=== PATIENT | female | born 1990 | race Caucasian/White ===

== ENCOUNTER 2017-10-18 01:08 | Emergency (ER) | payer OTHER ==
[2017-10-18 01:17] VITALS: BP 105/73; PULSE 79; TEMP 99; BMI 22.4
--- NOTE | 2017-10-18 01:29 | PDOC ---
History of Present Illness - General Chief Complaint: Pain Stated Complaint: ABD PAIN Time Seen by Provider: 10/18/17 01:10 - History of Present Illness Initial Comments: 10/18/17 01:43 Chief complaint: Pelvic pain and bleeding History of present illness: Patient states that she is 2 months and began to have bleeding approximately one week ago. She was checked at another hospital which she does not know the name and is unaware of the specific results of the tests that she had, although she states she had an ultrasound that showed a normal . The bleeding subsided earlier in the week, but she began to have light spotting again yesterday accompanied by suprapubic pain. The pain is not severe and she appears to be completely comfortable. Review of systems: LMP August 25. 3 para 2 with 2 live children ages 5 and 7. Her second was complicated by bleeding and resulted in a 29-week premature who reportedly is doing well. She has had no care and has no doctor or facility in mind. There is been no fever/chills, URI symptoms, sore throat, cough, chest pain, shortness of breath, nausea, vomiting, diarrhea , visual or focal neurologic symptoms, unsteadiness of gait. Past medical history: Prior pregnancies as noted above, otherwise negative. Specifically, no diabetes, heart disease, or other surgeries. Social history/family history reviewed and noncontributory Physical exam: Alert and oriented well-developed well-nourished no acute distress cheerful and cooperative Afebrile, vital signs normal HEENT clear Neck supple without bruit mass or nodes Lungs clear CV regular without murmur rub or gallop Abdomen nondistended. Bowel sounds normal. Soft without mass tenderness organomegaly. No definite heart tones were heard with Doppler. Pelvic exam: No heavy bleeding. Minimal spotting present. Tissue is protruding from the cervical os. No bimanual exam performed. Impression: 5-6 weeks by dates. Probable incomplete AB. No heavy bleeding or signs/symptoms of hypovolemia Plan: Labs and ultrasound. [facility] consultation. Past History - Past Medical History Allergies/Adverse Reactions: Allergies Allergy/AdvReac Type Severity Reaction Status Date / Time No Known Allergies Allergy Unverified 10/18/17 01:11 Home Medications: Ambulatory Orders NK [No Known Home Medication] 10/18/17 ED Treatment Course - LABORATORY CBC & Chemistry Diagram: 10/18/17 01:20 10/18/17 01:20 Medical Decision Making - Medical Decision Making 10/18/17 02:16 Phone consultation with [facility] continuous improvement specialist at [facility]&. Dr. Yanes. She recommends therapy with Cytotec, 200 mg stat, and 200 mg 3 times a day for 2 days. Motrin to control cramping. And follow-up at [facility]. Will consider when lab work and ultrasound are completed. 10/18/17 02:19 H/H 12.8/39.3. Urine qualitative hCG is positive. Quantitative pending. 10/18/17 05:48 Quantitative hCG greater than 99,000, consistent with 5-6 week gestation Ultrasound shows viable intrauterine with heart rate of 158. Approximately 5-6 weeks. Significance of the presumed tissue protruding from the os on examination is uncertain. Strongly recommended to patient that she see [facility] specialist within 2 days as directed for further examination, evaluation, and treatment. In the meantime, complete bedrest. *DC/Admit/Observation/Transfer Diagnosis at time of Disposition: Threatened - Discharge Dispostion Disposition: HOME Condition at time of disposition: Stable Decision to Admit order: No - Referrals Referrals: Gabriela Zuniga MD [Primary Care Provider] - 2 Days - Patient Instructions Printed Discharge Instructions: DI for Threatened Additional Instructions: Bed Rest See [facility] TECHNICIAN doctor as soon as possible. [facility] [phone] or [facility] Go to hospital if pain or bleeding worse. - Post Discharge Activity
[2017-10-18 02:08] LABS: BASO % 0.5 % (0-2.0); HEMATOCRIT 39.3 % (32.4-45.2); HEMOGLOBIN 12.8 GM/dL (10.7-15.3); LYMPH % 28.7 % (8-40); MCH 27.3 pg (25.7-33.7); MCHC 32.7 g/dl (32.0-36.0); MEAN CELL VOLUME 83.6 fl (80-96); MEAN PLT VOLUME 7.9 fl (7.5-11.1); NEUT % 60.8 % (42.8-82.8); PLATELET COUNT 276 K/MM3 (134-434); RDW 13.4 % (11.6-15.6); WHITE BLOOD COUNT 10.8 K/mm3 (4.0-10.0)
[2017-10-18 02:09] LABS: URINE APPEARANCE CLEAR; URINE BILIRUBIN NEGATIVE (<2.0 mg/dL); URINE COLOR LTYELLOW; URINE GLUCOSE (UA) NEGATIVE (NEGATIVE); URINE KETONE NEGATIVE (NEGATIVE); URINE NITRITE NEGATIVE (NEGATIVE); URINE PROTEIN NEGATIVE (NEGATIVE); URINE UROBILINOGEN NEGATIVE mg/dL (0.2-1.0)
[2017-10-18 02:12] LABS: URINE LEUK ESTERASE 2+ (NEGATIVE)
[2017-10-18 02:13] LABS: EPI CELLS RARE /HPF (FEW); HCG,QUALITATIVE URINE POSITIVE; URINE BACTERIA FEW /hpf (NONE SEEN)
[2017-10-18 02:33] LABS: ALBUMIN 3.4 g/dl (3.4-5.0); ALK PHOS 48 U/L (45-117); ANION GAP 6 (8-16); BLOOD UREA NITROGEN 13 mg/dL (7-18); CALCIUM 8.6 mg/dL (8.5-10.1); CHLORIDE 102 mmol/L (98-107); CO2 28 mmol/L (21-32); CREATININE 0.6 mg/dL (0.55-1.02); GLUCOSE,RANDOM 96 mg/dL (74-106); POTASSIUM 3.7 mmol/L (3.5-5.1); SGOT/AST 19 U/L (15-37); SGPT/ALT 22 U/L (12-78); SODIUM 136 mmol/L (136-145); TOT PROT 6.8 g/dl (6.4-8.2)
[2017-10-18 02:38] LABS: BILIRUBIN,TOTAL 0.1 mg/dL (0.2-1.0)
== END 2017-10-18 05:50 | disposition home or self-care (01) ==
LOC: FER 01:08
DX: O20.0 Threatened abortion (principal); Z3A.01 Less than 8 weeks gestation of pregnancy
CPT/HCPCS: 36415; 76801-TC; 76817-TC; 80053; 81003; 81015; 84702; 84703; 85025; 87086; 99282-25

== ENCOUNTER 2020-11-25 16:27 | Emergency (ER) | payer OTHER ==
[2020-11-25 16:35] VITALS: BP 109/60; PULSE 87; TEMP 98.9; BMI 25.4
[2020-11-25 18:07] LABS: BASO % 1.3 % (0-2.0); EOS % 1.7 % (0-4.5); HEMATOCRIT 33.4 % (32.4-45.2); HEMOGLOBIN 10.8 GM/dL (10.7-15.3); LYMPH % 19.1 % (8-40); MCH 23.5 pg (25.7-33.7); MCHC 32.5 g/dl (32.0-36.0); MEAN CELL VOLUME 72.2 fl (80-96); MEAN PLT VOLUME 7.3 fl (7.5-11.1); MONO % 5.5 % (3.8-10.2); NEUT % 72.4 % (42.8-82.8); PLATELET COUNT 335 10^3/uL (134-434); RBC 4.62 M/mm3 (3.60-5.2); RDW 18.3 % (11.6-15.6); WHITE BLOOD COUNT 10.2 K/mm3 (4.0-10.0)
[2020-11-25 18:25] LABS: CHLORIDE 103 mmol/L (98-107); SODIUM 137 mmol/L (136-145)
[2020-11-25 18:27] LABS: ALBUMIN 3.7 g/dl (3.4-5.0); ANION GAP 8 MMOL/L (8-16); BLOOD UREA NITROGEN 13.4 mg/dL (7-18); CO2 27 mmol/L (21-32); GLUCOSE,RANDOM 128 mg/dL (74-106)
[2020-11-25 18:30] LABS: SGOT/AST 15 U/L (15-37); SGPT/ALT 16 U/L (13-61)
[2020-11-25 18:31] LABS: CREATININE 0.8 mg/dL (0.55-1.3)
[2020-11-25 18:32] LABS: BILIRUBIN,TOTAL 0.2 mg/dL (0.2-1); TOT PROT 7.2 g/dl (6.4-8.2)
[2020-11-25 18:33] LABS: ALK PHOS 65 U/L (45-117)
[2020-11-25] MEDS ORDERED: DEXAMETHASONE LIQUID 0.5 MG/5 ML PO ONE (20:50)
[2020-11-25] MEDS ORDERED: DEXAMETHASONE 4 MG TABLET (FP) PO ONE (20:50)
[2020-11-25] MEDS ORDERED: DEXAMETHASONE 4 MG TABLET (FP) ONE (20:50)
== END 2020-11-25 20:59 | disposition home or self-care (01) ==
LOC: JER 16:27
DX: L02.211 Cutaneous abscess of abdominal wall (principal); G89.18 Other acute postprocedural pain
CPT/HCPCS: 36415; 76705-TC; 80053; 84702; 85025; 99284-25

== ENCOUNTER 2020-11-27 18:50 | Emergency (ER) | payer OTHER ==
[2020-11-27 18:56] VITALS: BP 102/68; PULSE 81; TEMP 97.5; BMI 25.4
[2020-11-27 22:50] LABS: BASO % 0.6 % (0-2.0); EOS % 1.2 % (0-4.5); HEMATOCRIT 31.8 % (32.4-45.2); HEMOGLOBIN 10.3 GM/dL (10.7-15.3); LYMPH % 22.3 % (8-40); MCH 23.5 pg (25.7-33.7); MCHC 32.4 g/dl (32.0-36.0); MEAN CELL VOLUME 72.5 fl (80-96); MEAN PLT VOLUME 7.5 fl (7.5-11.1); MONO % 9.3 % (3.8-10.2); NEUT % 66.6 % (42.8-82.8); PLATELET COUNT 376 10^3/uL (134-434); RBC 4.39 M/mm3 (3.60-5.2); RDW 18.1 % (11.6-15.6); WHITE BLOOD COUNT 9.3 K/mm3 (4.0-10.0)
[2020-11-27 22:57] LABS: CALCIUM 8.4 mg/dL (8.5-10.1)
[2020-11-27 22:58] LABS: ALBUMIN 3.3 g/dl (3.4-5.0); BLOOD UREA NITROGEN 13.6 mg/dL (7-18)
[2020-11-27 23:01] LABS: CREATININE 0.8 mg/dL (0.55-1.3)
[2020-11-27 23:02] LABS: BILIRUBIN,TOTAL 0.2 mg/dL (0.2-1); TOT PROT 6.6 g/dl (6.4-8.2)
[2020-11-28 01:46] LABS: URINE COLOR YELLOW
[2020-11-28 01:47] LABS: PH,URINE 7.5 (5.0-8.0); URINE APPEARANCE CLEAR; URINE BILIRUBIN NEGATIVE (NEGATIVE); URINE GLUCOSE (UA) NEGATIVE (NEGATIVE); URINE KETONE NEGATIVE (NEGATIVE); URINE NITRITE NEGATIVE (NEGATIVE); URINE PROTEIN NEGATIVE (NEGATIVE); URINE UROBILINOGEN 0.2 mg/dL (0.2-1.0)
[2020-11-28 01:48] LABS: EPI CELLS 15 /uL (0-25.1); HYALINE CASTS 1 /uL (0-3.1); URINE BACTERIA 168 /uL (0-1359); URINE LEUK ESTERASE NEGATIVE (NEGATIVE); URINE RBC 4 /uL (0-23.9); URINE WBC 38 /uL (0-25.8)
== END 2020-11-28 03:39 | disposition home or self-care (01) ==
LOC: JER 18:50
DX: T81.43XA Infection following a procedure, organ and space surgical site, initial encounter (principal)
CPT/HCPCS: 36415; 74177-TC; 80053; 81003; 85025; 99285-25

== ENCOUNTER 2023-08-10 12:17 | Emergency (ER) | payer OTHER ==
[2023-08-10 12:23] VITALS: BP 105/70; PULSE 79; RESP 18; TEMP 97.6; BMI 25.7
[2023-08-10 13:04] LABS: EOS % 4.6 % (0-4.5); HEMATOCRIT 39.7 % (32.4-45.2); HEMOGLOBIN 13.2 GM/dL (10.7-15.3); MCH 27.8 pg (25.7-33.7); MCHC 33.3 g/dl (32.0-36.0); MEAN CELL VOLUME 83.7 fl (80-96); MEAN PLT VOLUME 6.9 fl (7.5-11.1); MONO % 7.8 % (3.8-10.2); NEUT % 56.6 % (42.8-82.8); PLATELET COUNT 339 10^3/uL (134-434); RBC 4.74 M/mm3 (3.60-5.2); RDW 14.2 % (11.6-15.6); WHITE BLOOD COUNT 5.9 K/mm3 (4.0-10.0)
[2023-08-10 13:09] LABS: INR 0.95 (0.83-1.09); PROTHROMBIN TIME (PATIENT) 10.8 SEC (9.7-13.0)
[2023-08-10 13:11] LABS: ACTIVATED PTT 31.3 SECONDS (25.2-36.5)
[2023-08-10 13:29] LABS: POTASSIUM 4.3 mmol/L (3.5-5.1)
[2023-08-10 13:31] LABS: CALCIUM 9.2 mg/dL (8.5-10.1)
[2023-08-10 13:32] LABS: ALBUMIN 3.5 g/dl (3.4-5.0); BLOOD UREA NITROGEN 14.4 mg/dL (7-18)
[2023-08-10 13:35] LABS: CREATININE 0.8 mg/dL (0.55-1.3)
[2023-08-10 13:36] LABS: BILIRUBIN,TOTAL 0.2 mg/dL (0.2-1)
[2023-08-10 13:37] LABS: TOT PROT 6.9 g/dl (6.4-8.2)
[2023-08-10] MEDS ORDERED: KETOROLAC TROMETHAMINE 15 MG/ML VIAL ONE ×2 (14:03→14:58)
[2023-08-10] MEDS: KETOROLAC TROMETHAMINE 15 MG/ML VIAL IVPUSH ONE (15:07)
== END 2023-08-10 15:16 | disposition home or self-care (01) ==
LOC: JER 12:17
PROC: 3E0303Z Introduction of Anti-inflammatory into Peripheral Vein, Open Approach (ICD-10-PCS; principal; 2023-08-10)
DX: N93.9 Abnormal uterine and vaginal bleeding, unspecified (principal); R10.2 Pelvic and perineal pain; R42 Dizziness and giddiness; R53.1 Weakness; M79.651 Pain in right thigh; M79.652 Pain in left thigh
CPT/HCPCS: 36415; 76830-TC; 80053; 84703; 85025; 85610; 85730; 86850; 86900; 86901; 99284-25